=== PATIENT | male | born 1945 | race Caucasian/White ===

== ENCOUNTER → 2016-09-11 | Outpatient (CLI) | payer MEDICARE | END | disposition home or self-care (01) | LOC: PCVCIMAG 09:05 | PROVIDERS: ATTEND Internal Medicine Cardiovascular Disease | DX: I35.0 Nonrheumatic aortic (valve) stenosis (principal); I10 Essential (primary) hypertension; G47.33 Obstructive sleep apnea (adult) (pediatric) | CPT/HCPCS: 93005; 93306; G0463 ==

== ENCOUNTER → 2017-08-01 | Outpatient (CLI) | payer MEDICARE | END | disposition home or self-care (01) | LOC: PCVCCLINIC 15:21 | DX: I10 Essential (primary) hypertension (principal); I35.0 Nonrheumatic aortic (valve) stenosis; E78.00 Pure hypercholesterolemia, unspecified; K21.9 Gastro-esophageal reflux disease without esophagitis; R94.31 Abnormal electrocardiogram [ECG] [EKG]; Z87.891 Personal history of nicotine dependence; Z79.899 Other long term (current) drug therapy; Z79.82 Long term (current) use of aspirin | CPT/HCPCS: 93005; G0463 ==

== ENCOUNTER → 2018-02-06 | Outpatient (CLI) | payer MEDICARE ==
--- NOTE | 2018-02-06 15:45 | PCVCIMAG ---
APPROVED REPORT Study performed: 02/06/2018 14:01:34 EXAM: Comprehensive 2D, Doppler, and color-flow Echocardiogram Patient Location: Echo lab Status: routine BSA: 2.04 HR: 79 bpmBP: 148/82 mmHg Rhythm: NSR,RBBB Other Information Study Quality: Good Risk Factors: Cardiac Risk Factors: HTN, Hyperlipidemia Indications Aortic Valve Disease 2D Dimensions IVSd: 12.99 (7-11mm)LVOT Diam: 20.00 (18-24mm) LVDd: 42.51 mm PWd: 14.46 (7-11mm)Ascending Ao: 29.62 (22-36mm) LVDs: 29.17 (25-40mm) Left Atrium: 36.02 (27-40mm) Aortic Root: 29.54 mm LV Single Plane 4CH: 61.56 % LV Single Plane 2CH: 59.06 % Biplane EF: 62.6 % Volumes Left Atrial Volume (Systole) Single Plane 4CH: 33.52 mLSingle Plane 2CH: 63.46 mL LA ESV Index: 23.00 mL/m2 Aortic Valve AoV Peak Sandip.: 3.19 m/s AO Peak Gr.: 40.83 mmHgLVOT Max P.22 mmHg AO Mean Gr.: 25.93 mmHgLVOT Mean P.55 mmHg AO V2 Mean: 2.46 m/sLVOT Max V: 1.14 m/s AO V2 VTI: 63.88 cmLVOT Mean V: 0.91 m/s NURA (VTI): 1.06 ie1WVAM V1 VTI: 22.61 cm NURA Vmax: 1.07 cm2 SV (LVOT): 67.82 mL Mitral Valve E/A Ratio: 0.6 MV Decel. Time: 118.51 ms MV E Max Sandip.: 0.85 m/s MV A Sandip.: 1.39 m/s IVRT: 55.36 ms TDI E/Lateral E': 10.63E/Medial E': 28.33 Medial E' Sandip.: 0.03 m/s Lateral E' Sandip.: 0.08 m/s Pulmonary Valve PV Peak Sandip.: 1.41 m/sPV Peak Gr.: 7.96 mmHg Pulmonary Vein P Vein S: 0.53 m/sP Vein A: 0.30 m/s P Vein D: 0.38 m/sP Vein A Dur.: 107.3 msec P Vein S/D Ratio: 1.39 Tricuspid Valve TR Peak Sandip.: 2.73 m/sRAP Estimate: 7.00 mmHg TR Peak Gr.: 29.77 mmHg PA Pressure: 37.00 mmHg Left Ventricle The left ventricle is normal size. There is normal LV segmental wall motion. Mild to moderate concentric left ventricular hypertrophy. Left ventricular systolic function is normal. The left ventricular ejection fraction is within the normal range. LVEF is 60%. Grade I - abnormal relaxation pattern. Right Ventricle The right ventricle is normal size. The right ventricular systolic function is normal. Atria The left atrium size is normal. The right atrium size is normal. Aortic Valve Aortic valve is calcified. No aortic regurgitation is present. The peak aortic valve gradient is 41 mmHg and the mean gradient is 26 mmHg. The aortic valve area is 1.1 cm2. Mitral Valve There is mitral annular calcification. Trace mitral regurgitation. No evidence of mitral valve stenosis. Tricuspid Valve The tricuspid valve is normal in structure. Trace tricuspid regurgitation. Pulmonary artery pressure is 37 mmHg. Pulmonic Valve The pulmonary valve is normal in structure. There is no pulmonic valvular regurgitation. Great Vessels The aortic root is normal in size. IVC is normal in size and collapses >50% with inspiration. Pericardium There is no pericardial effusion. <Conclusion> The left ventricle is normal size. LVEF is 60%. Grade I - abnormal relaxation pattern. The right ventricle is normal size. The left atrium size is normal. Aortic valve is calcified. The peak aortic valve gradient is 41 mmHg and the mean gradient is 26 mmHg. The aortic valve area is 1.1 cm2. There is mitral annular calcification. Trace mitral regurgitation. Trace tricuspid regurgitation. Pulmonary artery pressure is 37 mmHg. The aortic root is normal in size. There is no pericardial effusion.
== END | disposition home or self-care (01) ==
LOC: PCVCIMAG 14:00
PROVIDERS: ATTEND Internal Medicine Cardiovascular Disease
DX: I35.0 Nonrheumatic aortic (valve) stenosis (principal); I44.7 Left bundle-branch block, unspecified; E78.00 Pure hypercholesterolemia, unspecified; I10 Essential (primary) hypertension; G47.33 Obstructive sleep apnea (adult) (pediatric); Z87.891 Personal history of nicotine dependence; Z79.82 Long term (current) use of aspirin
CPT/HCPCS: 80061; 93005; 93306; G0463

== ENCOUNTER → 2018-10-09 | Outpatient (CLI) | payer MEDICARE ==
--- NOTE | 2018-10-14 15:29 | PCVCIMAG ---
APPROVED REPORT Patient Location: Echo lab- TREADMILL STRESS TEST Room #: 2 Stress Nurse: Yohana Vincent RN INDICATIONS: Treadmill stress test for exercise capacity in the setting of moderate aortic stenosis, dyspnea on exertion The patient exercised according to the LISA protocol for9:00 mins; achieving a work level of 10.4 METS. The resting heart rate of 79 bpm demarco to a maximum heart rate of 142 bpm. This value represent 97% of the maximal, age-predicted heart rate. The resting blood pressure of 138/74 mmHg, demarco to a maximum blood pressure of 184/94 mmHg. The exercise test was stopped due to fatigue . Conclusion #1 he stopped secondary to shortness of breath no production of chest pain or angina. #2 nondiagnostic EKG sinus rhythm with underlying left bundle-branch block. #3 good exercise tolerance with an appropriate hemodynamic response exhibiting good functional capacity #4 no significant ectopy was noted. Impression negative treadmill stress test for ischemia although less accuracy due to left bundle branch block but showing good functional capacity
== END | disposition home or self-care (01) ==
LOC: PCVCIMAG 12:56
PROVIDERS: ATTEND Internal Medicine Cardiovascular Disease
DX: I35.0 Nonrheumatic aortic (valve) stenosis (principal); I10 Essential (primary) hypertension; E78.00 Pure hypercholesterolemia, unspecified; K21.9 Gastro-esophageal reflux disease without esophagitis; R09.89 Other specified symptoms and signs involving the circulatory and respiratory systems; I44.7 Left bundle-branch block, unspecified; R06.00 Dyspnea, unspecified
CPT/HCPCS: 36415; 80061; 93017; G0463